=== PATIENT | male | born 1995 | race Caucasian/White ===

== ENCOUNTER 2019-06-22 08:47 | Emergency (ER) | payer OTHER ==
[2019-06-22 08:57] VITALS: BP 107/54; PULSE 59; TEMP 97.8; BMI 21.2
--- NOTE | 2019-06-22 09:25 | PDOC ---
History of Present Illness - General Chief Complaint: Pain, Acute Stated Complaint: ABD. PAIN/ VOMITING/ RECTAL BLEEDING Time Seen by Provider: 06/22/19 09:03 History Source: Patient - History of Present Illness Timing/Duration: reports: resolved prior to arrival Past History - Past Medical History Allergies/Adverse Reactions: Allergies Allergy/AdvReac Type Severity Reaction Status Date / Time No Known Allergies Allergy Verified 06/22/19 08:57 Home Medications: Ambulatory Orders NK [No Known Home Medication] 06/22/19 COPD: No - Psycho Social/Smoking Cessation Hx Smoking History: Never smoked Hx Alcohol Use: No Drug/Substance Use Hx: Yes (MARIJUANA) Review of Systems - Review of Systems Constitutional: No: Chills, Fever ABD/GI: Yes: Blood Streaked Bowels. No: Constipated, Diarrhea, Nausea, Vomiting *Physical Exam - Vital Signs Last Vital Signs Temp Pulse Resp BP Pulse Ox 97.8 F 59 L 16 107/54 L 97 06/22/19 08:54 06/22/19 08:54 06/22/19 08:54 06/22/19 08:54 06/22/19 08:54 - Physical Exam General Appearance: Yes: Appropriately Dressed. No: Apparent Distress HEENT: positive: Normal Voice Neck: positive: Supple Respiratory/Chest: negative: Respiratory Distress Gastrointestinal/Abdominal: positive: Soft. negative: Tender Integumentary: positive: Dry, Warm Neurologic: positive: Fully Oriented, Alert, Normal Mood/Affect Medical Decision Making - Medical Decision Making 06/22/19 09:04 23-year-old male, no significant history, here with rectal bleeding. Pt states he noticed 1 episode of small amount of blood in stool this a.m. No rectal pain , swelling, abdominal pain nausea or vomiting. States he sometimes strains to have a bowel movement but no constipation currently. No history of similar episode. Feels well otherwise see exam BRBPR this am Since resolved No constipation No hemorrhoid/fissure seen on exam No red flags at this time Dc w/ reassurance, to return for worsening of sxs as discussed Discharge - Discharge Information Problems reviewed: Yes Clinical Impression/Diagnosis: BRBPR (bright red blood per rectum) Condition: Good Disposition: HOME - Follow up/Referral Referrals: Michael Llanes [Primary Care Provider] - - Patient Discharge Instructions Patient Printed Discharge Instructions: DI for Rectal Bleeding Additional Instructions: Please return for worsening of symptoms - Post Discharge Activity Work/Back to School Note: Back to Work
== END 2019-06-22 10:52 | disposition home or self-care (01) ==
LOC: JER 08:47
DX: K62.5 Hemorrhage of anus and rectum (principal)
CPT/HCPCS: 99283-25